=== PATIENT | male | born 2000 | race Caucasian/White ===

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

== ENCOUNTER 2019-05-24 19:24 | Emergency (ER) | payer BC ==
[2019-05-24 19:31] VITALS: BP 128/68
--- NOTE | 2019-05-24 19:35 | UC ---
Skin Complaint HPI - HPI Summary HPI Summary: 18 yo male presents with RIGHT thumb laceration. He tells me that around 1300 today he was using a mandolin to slice cucumbers and accidentally sliced his right thumb. Applied pressure and stopped the bleeding and then went to work. Here because the skin flap is still attached and he is wondering if he needs stitches. Last tetanus was within the last 4 years as he was traveling internationally. He is right handed. - History of Current Complaint Chief Complaint: UCLaceration Time Seen by Provider: 05/24/19 19:35 Stated Complaint: FINGER LACERATION Onset/Duration: Sudden Onset Onset Severity: Moderate Current Severity: Mild Pain Intensity: 3 Pain Scale Used: 0-10 Numeric - Allergy/Home Medications Allergies/Adverse Reactions: Allergies Allergy/AdvReac Type Severity Reaction Status Date / Time No Known Allergies Allergy Verified 05/24/19 19:31 Home Medications: Home Medications FLUoxetine CAP* [PROzac CAP*] 20 mg PO DAILY 05/24/19 [History Confirmed ] Otc Allergy Med* 1 tab PO DAILY 05/24/19 [History Confirmed 05/24/19] PMH/Surg Hx/FS Hx/Imm Hx Neurological History: Seizures Psychological History: Anxiety, Depression - Surgical History Surgical History: Yes Surgery Procedure, Year, and Place: tubes in ears, DENTAL - Family History Known Family History: Positive: Other Family History: Pt states cancer, he can't recall what type - Social History Alcohol Use: Occasionally Substance Use Type: None Smoking Status (MU): Never Smoked Tobacco Have You Smoked in the Last Year: No Household Exposure Type: Cigarettes - Immunization History Most Recent Tetanus Shot: UNKNOWN Vaccination Up to Date: Yes Review of Systems All Other Systems Reviewed And Are Negative: Yes Constitutional: Positive: Negative Skin: Positive: Other - Right thumb laceration Respiratory: Positive: Negative Cardiovascular: Positive: Negative Neurovascular: Positive: Negative Musculoskeletal: Positive: Negative Neurological: Positive: Negative Psychological: Positive: Negative Physical Exam - Summary Physical Exam Summary: GENERAL: NAD. WDWN. No pain distress. SKIN: RIGHT THUMB: 7mm partial superficial skin avulsion at thumb pad with radial aspect still attached. Wound clean without FB. No bleeding. Mild TTP. NECK: Supple. Nontender. No lymphadenopathy. CHEST: No accessory muscle use. Breathing comfortably and in no distress. CV: Pulses intact. Cap refill <2seconds NEURO: Alert. PSYCH: Age appropriate behavior. Triage Information Reviewed: Yes Vital Signs: Initial Vital Signs Temp 98.9 F 05/24/19 19:28 Pulse 78 05/24/19 19:28 Resp 16 05/24/19 19:28 BP 128/68 05/24/19 19:28 Pulse Ox 97 05/24/19 19:28 Vital Signs Reviewed: Yes Laceration Repair - Laceration Repair 1 Laceration Size After Repair: Length (cm) - 0.7 Cleansing Completed Via Routine Prep: Yes Closure Material: Skin Adhesive Closure Method: Single Layer Suture Of: Skin Course/Dx - Course Course Of Treatment: Wound was cleansed with NS. Dermabond applied and skin flap approximated - not amenable to sutures as the avulsed skin was very superficial and too thin for suture material tension. Bandaged with a bandaid. - Diagnoses Provider Diagnosis: Avulsion of skin of finger Discharge - Sign-Out/Discharge Documenting (check all that apply): Patient Departure All imaging exams completed and their final reports reviewed: No Studies - Discharge Plan Condition: Stable Disposition: HOME Patient Education Materials: Skin Avulsion (ED), Skin Adhesive Care (ED) Referrals: Clement Daniels MD [Primary Care Provider] - Additional Instructions: If you develop a fever, shortness of breath, chest pain, new or worsening symptoms - please call your PCP or go to the ED immediately. 1) Change the band-aid daily until well healed (likely 3-5 days) - Billing Disposition and Condition Condition: STABLE Disposition: Home
== END 2019-05-24 20:03 | disposition home or self-care (01) ==
LOC: UCEAST 19:24
DX: S61.011A Laceration without foreign body of right thumb without damage to nail, initial encounter (principal); W26.0XXA Contact with knife, initial encounter; Y93.G1 Activity, food preparation and clean up; Y92.010 Kitchen of single-family (private) house as the place of occurrence of the external cause; Y99.8 Other external cause status; F41.9 Anxiety disorder, unspecified; F32.9 Major depressive disorder, single episode, unspecified
CPT/HCPCS: 12001; 99211; G0463